=== PATIENT | female | born 1935 | race Caucasian/White ===

== ENCOUNTER 2016-11-02 11:31 | Day surgery (SDC) | payer MEDICARE ==
--- NOTE | 2016-10-27 09:36 | HP ---
CC: Bello Ying MD in the [facility] * HISTORY AND PHYSICAL: DATE OF ADMISSION: 11/02/16 PRIMARY CARE PROVIDER: Milad Espinal MD (DICTATED BY JOESPH RANDLE NP) CHIEF COMPLAINT: Decreased vision, right eye. HISTORY OF PRESENT ILLNESS: This 80-year-old white female has a history of cataract removal on the left eye. 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 She is having problems with decreased vision of the right eye now and is diagnosed with a right cataract with Dr. Bello Ying. She is scheduled for cataract extraction of the right eye under local anesthesia monitored anesthesia care at the [facility] on 11/02/16. PAST MEDICAL HISTORY: The patient is under the care of Dr. Milad Espinal. She has a history of yjx-[id number]-vthnjflov diabetes. Diabetes is well controlled with an A1c of 6.4. She has a history of hypertension, systolic murmur, and hyperlipidemia. PAST SURGICAL HISTORY: Includes intracerebral aneurysm, 2 areas clipped. She then had a heart attack and a stroke and was in a coma for 3 months. Had extensive physical therapy in 1994. She has also had a hysterectomy, cholecystectomy, and appendectomy. CURRENT MEDICATIONS: 1. Metformin ER 500 mg one tablet b.i.d. 2. Lovastatin 20 mg daily. 3. Amlodipine 5 mg daily. 4. Lisinopril 10 mg daily. 5. Omeprazole 20 mg daily. 6. Aspirin 81 mg daily. The patient was advised that she could continue that medication during her cataract surgery. No need to hold it. 7. Additionally, she takes oxybutynin ER 10 mg daily and Senokot-S for constipation. ALLERGIES: 1. VALIUM has caused nausea. 2. TRAMADOL, sedation. 3. ATENOLOL, bradycardia. 4. Questionable IV CONTRAST allergy. 5. She had a history of reaction to DYE during a knee arthrogram. FAMILY HISTORY: Significant for coronary artery disease in her mother and 3 brothers. Father had prostate CA. SOCIAL HISTORY: The patient lives in the [facility]. She is a . She does not drink any alcohol, but admits to continuing to smoke a half a pack of cigarettes a day since age 16. REVIEW OF SYSTEMS: She does have nocturia 1 to 2 times a night, occasional achy low back pain. Otherwise, review of systems is negative to detailed questioning. Specifically, she denies any dyspnea, cough, chest pain, palpitations, or edema symptoms. PHYSICAL EXAMINATION GENERAL: This 80-year-old white female is alert, pleasant, and cooperative. VITAL SIGNS: Height 5 feet, weight stable at 106. Blood pressure slightly elevated today at 152/70, pulse bradycardic at 56. HEENT: Right eye not examined. Her left eye has eversion from nerve palsy. Mouth: Tongue in the midline. She has a full upper denture plate, not removed for examination. 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 Pharynx is clear. NECK: Thin. No adenopathy. No tenderness. Thyroid benign. BACK: She has scoliosis since childhood. No tenderness noted on the spine or CVA areas. LUNGS: Clear. She does have some decrease in her breath sounds. Extensive smoking history. HEART: Rhythm is regular. Slightly bradycardic at 56 beats per minute. She has a grade 2/6 systolic murmur. ABDOMEN: Flat. Active bowel sounds. Abdomen is soft, nontender. No obvious masses or organomegaly. SKIN: Warm, dry, intact. No worrisome lesions noted. DIAGNOSTIC DATA: EKG will officially be read by Dr. Espinal, essentially showed sinus bradycardia, T inversions, no change from prior EKG dating back to May 2010. Please see copy for revised details. IMPRESSION: The patient is medically stable and cleared for her right cataract extraction [facility]. JOESPH RANDLE, YOAN [id number]/[facility] #: [id number] [facility]IGHT[facility] MEDICAL CENTERAdeola
[~2016-11-02 11:31] MED LIST: Acetaminophen TAB* 325 MG PO PRN; Buffered Lidocaine 0.9% SYRIN* 5 ML/SYR SYRINGE INTRADERM ONE; Cyclopentolate 1% OPTH.SOL* 2 ML BTL ONE; Flurbiprofen 0.03% OPTH.SOL* 2.5 ML BTL ONE; Lidocaine 2% EPI 1:200000 MPF* 20 ML VIAL ONE; Lidocaine 2% MPF* 2 ML VIAL ONE; Neomycin/Polymy/Dex OPTH.SUSP* MAXITROL 0.1% 5 ML ONE; Phenylephrine 2.5% OPTH.SOL* 2 ML BTL ONE; Povidone Iodine 5% OPTH* 30 ML BTL ONE; Proparacaine 0.5% OPHTH.SOL* 15 ML BTL ONE; acetaZOLAMIDE TAB* 250 MG ONE
[2016-11-02] MEDS ORDERED: Midazolam* 1 MG/ML 5 ML VIAL (5 MG) ONE (12:52)
[2016-11-02] MEDS ORDERED: fentaNYL* 50 MCG/ML 2 ML VIAL (100 MCG VIAL) ONE (12:52)
[2016-11-02 15:13] VITALS: BP 142/77
--- NOTE | 2016-11-02 16:49 | OP ---
DATE OF OPERATION: 11/02/2016 - [facility] DATE OF : 1935. SURGEON: Bello Ying M.D. PREOPERATIVE DIAGNOSIS: Cataract right eye. POSTOPERATIVE DIAGNOSIS: Cataract right eye. OPERATIVE PROCEDURE: Phacoemulsification right eye with IOL. DESCRIPTION OF PROCEDURE: The patient was brought to the operating room after being given 1/2% Alcaine with epinephrine drops in the preoperative area. The eye was prepped and draped in the usual sterile fashion. Sterile drape and eyelid speculum were placed. Again, topical 1/2% Alcaine with epinephrine was given. A paracentesis incision was made at the 9 o'clock position with the No.75 blade. Clear cornea incision 2.2 x 2.2-mm was created at the 12 o'clock position starting at the anterior limbus using the 2.2-mm keratome. The anterior chamber was irrigated with 0.4 mL of 1% non-preservative intracameral lidocaine and filled with DisCoVisc. A capsulorrhexis was completed using the cystotome and the Utrata forceps. Hydrodissection was performed with balanced salt solution. The lens nucleus was removed with the Phacoemulsification handpiece without incident. Cortex was removed with the irrigation-aspiration handpiece. The capsular bag was re-inflated using DisCoVisc and an [id number] 23.5 implant was inserted with the shooter and oriented to the 16 degree meridian. Horizontal reference baker made with the patient in the seated position in the preoperative area. The irrigation-aspiration handpiece was used to remove all residual DisCoVisc. The eye was refilled with balanced salt solution and the wound checked and found to be watertight. Topical Maxitrol drops were given. [id number]/[facility] #: [id number] MTDAdeola
== END 2016-11-02 15:10 | disposition home or self-care (01) ==
LOC: OREAST 11:31
PROVIDERS: ATTEND Specialist
DX: H25.811 Combined forms of age-related cataract, right eye (principal); H34.8322 Tributary (branch) retinal vein occlusion, left eye, stable; E11.9 Type 2 diabetes mellitus without complications; Z79.84 Long term (current) use of oral hypoglycemic drugs; H49.02 Third [oculomotor] nerve palsy, left eye; F17.210 Nicotine dependence, cigarettes, uncomplicated; I10 Essential (primary) hypertension
CPT/HCPCS: A9270-GY; J2250; J3010; V2787

== ENCOUNTER 2018-06-01 05:37 | Day surgery (SDC) | payer MEDICARE ==
[~2018-06-01 05:37] MED LIST changes: -Acetaminophen TAB* 325 MG PO PRN; -Buffered Lidocaine 0.9% SYRIN* 5 ML/SYR SYRINGE INTRADERM ONE; +Buffered Lidocaine 1% SYRIN* 1 ML/SYRINGE INTRADERM ONE; -Cyclopentolate 1% OPTH.SOL* 2 ML BTL ONE; -Flurbiprofen 0.03% OPTH.SOL* 2.5 ML BTL ONE; -Lidocaine 2% EPI 1:200000 MPF* 20 ML VIAL ONE; -Lidocaine 2% MPF* 2 ML VIAL ONE; -Neomycin/Polymy/Dex OPTH.SUSP* MAXITROL 0.1% 5 ML ONE; -Phenylephrine 2.5% OPTH.SOL* 2 ML BTL ONE; -Povidone Iodine 5% OPTH* 30 ML BTL ONE; -Proparacaine 0.5% OPHTH.SOL* 15 ML BTL ONE; -acetaZOLAMIDE TAB* 250 MG ONE
[2018-06-01] MEDS ORDERED: Lactated Ringers 1000 ML Bag* 1,000 ML IV SCH (06:00)
[2018-06-01] MEDS ORDERED: Famotidine IV* 10 MG/ML 2 ML (20 mg) IV ONE (06:00)
[2018-06-01] MEDS ORDERED: Metoclopramide IV* 5 MG/ML 2 ML VIAL IV SLOW PU ONE (06:00)
[2018-06-01] MEDS ORDERED: Metoclopramide IV* 5 MG/ML 2 ML VIAL ONE (06:03)
[2018-06-01] MEDS ORDERED: Buffered Lidocaine 1% SYRIN* 1 ML/SYRINGE ONE (06:04)
[2018-06-01] MEDS ORDERED: Famotidine IV* 10 MG/ML 2 ML (20 mg) ONE (06:04)
[2018-06-01] MEDS ORDERED: ceFAZolin 2 GM PREMIX in ORs 2 GM/50 ML BAG IVPB ONE (06:04)
[2018-06-01] MEDS ORDERED: fentaNYL* 50 MCG/ML 2 ML VIAL (100 MCG VIAL) ONE (07:27)
[2018-06-01] MEDS ORDERED: Propofol* 10 MG/ML 20 ML BTL ONE (07:27)
[2018-06-01] MEDS ORDERED: Lidocaine 2% PF * 5 ML VIAL ONE (07:28)
[2018-06-01] MEDS ORDERED: Lidocaine 1% INJ* 10 MG/ML 30 ML SDV ONE (07:32)
[2018-06-01] MEDS ORDERED: Naloxone* 0.4 MG/ML 1 ML VIAL IV PRN (08:36)
--- NOTE | 2018-06-01 09:02 | OP ---
DATE OF OPERATION: 06/01/18 - [facility] DATE OF : 35 SURGEON: Gigi Hines MD PUBLIC HEALTH VETERINARIAN: Dr. So. ANESTHESIA: Local with MAC sedation. PRE-OP DIAGNOSIS: Vaginal vault prolapse. POST-OP DIAGNOSIS: Vaginal vault prolapse. OPERATIVE PROCEDURE: Colpocleisis. COMPLICATIONS: None. ESTIMATED BLOOD LOSS: 50 cc. FINDINGS: On exam under anesthesia, the vault had third-degree prolapse. DESCRIPTION OF PROCEDURE: The patient identified, procedure identified as a colpocleisis. Patient was taken to the operating room, prepped and draped in the usual fashion in the dorsal lithotomy position under sedation. The vaginal fornices were grasped with two Allis. Approximately 20 cc of lidocaine was injected at the anterior vagina and then posterior vagina systemically. A rectangular incision was made from about 1 cm below the urethra down to the vaginal fornix and again from the vaginal fornix down to the perineal body. This was stripped off using blunt and sharp dissection until two areas of vaginal mucosa were exposed anteriorly and posteriorly. These were subsequently sutured together starting at the anterior portion and using #2-0 PDS brought down all the way to the level from laterally down anteriorly in a systematic fashion until the vagina was closed. Good hemostasis was verified. All instruments were removed from the vagina. All sponge and instrument counts were correct and the patient returned to recovery room in stable condition. [id number]/[facility] #: [id number] MTDD
[2018-06-01 09:27] VITALS: BP 130/73
== END 2018-06-01 09:38 | disposition home or self-care (01) ==
LOC: OR 05:37
PROVIDERS: ATTEND Obstetrics & Gynecology
DX: N99.3 Prolapse of vaginal vault after hysterectomy (principal); Z87.891 Personal history of nicotine dependence; I25.10 Atherosclerotic heart disease of native coronary artery without angina pectoris; I25.2 Old myocardial infarction; I42.9 Cardiomyopathy, unspecified; I10 Essential (primary) hypertension; E78.5 Hyperlipidemia, unspecified; E11.9 Type 2 diabetes mellitus without complications; Z79.84 Long term (current) use of oral hypoglycemic drugs; K21.9 Gastro-esophageal reflux disease without esophagitis; M19.90 Unspecified osteoarthritis, unspecified site
CPT/HCPCS: J0690; J2704; J2765; J3010